=== PATIENT | female | born 1975 | race Caucasian/White ===

== ENCOUNTER 2017-06-13 10:38 | Day surgery (SDC) | payer BC ==
[~2017-06-13 10:38] MED LIST: Buffered Lidocaine 0.9% SYRIN* 5 ML/SYR SYRINGE INTRADERM ONE; Dexamethasone IV* 4 MG/ML 1 ML (4 MG) IV SLOW PU ONE; Famotidine IV* 10 MG/ML 2 ML (20 mg) IV ONE
[2017-06-13] MEDS ORDERED: Dexamethasone IV* 4 MG/ML 1 ML (4 MG) ONE ×2 (11:00→12:10)
[2017-06-13] MEDS ORDERED: Clindamycin 900 MG IVPREMIX(* 900 MG/50 ML SDV IV ONE (11:00)
[2017-06-13] MEDS ORDERED: Famotidine IV* 10 MG/ML 2 ML (20 mg) ONE (11:00)
[2017-06-13] MEDS ORDERED: Buffered Lidocaine 0.9% SYRIN* 5 ML/SYR SYRINGE ONE (11:00)
[2017-06-13] MEDS ORDERED: Lidocaine 1% INJ* 10 MG/ML 30 ML SDV ONE (12:10)
[2017-06-13] MEDS ORDERED: Bupivacaine 0.25% SDV* 30 ML ONE (12:11)
[2017-06-13] MEDS ORDERED: fentaNYL* 50 MCG/ML 2 ML VIAL (100 MCG VIAL) ONE ×3 (12:19→15:06)
[2017-06-13] MEDS ORDERED: Midazolam* 1 MG/ML 2 ML VIAL (2 MG) ONE (12:20)
[2017-06-13] MEDS ORDERED: Lidocaine 2% PF * 5 ML VIAL ONE (12:20)
[2017-06-13] MEDS ORDERED: Propofol* 10 MG/ML 20 ML BTL IV PUSH ONE ×3 (12:20→13:48)
[2017-06-13] MEDS ORDERED: Ondansetron INJ* 2 MG/ML VIAL ONE (13:34)
[2017-06-13] MEDS ORDERED: PROCHLORPERAZINE INJ 5 MG/ML 2 ML VIAL IV PRN (14:56)
[2017-06-13] MEDS ORDERED: Acetaminophen TAB* 325 MG PO PRN (14:56)
[2017-06-13] MEDS ORDERED: HYDROcodone/ACETAMIN 5-325 MG* 1 TAB PO PRN (14:56)
[2017-06-13] MEDS ORDERED: DiMENhydriNATE IV* 50 MG/ML VIAL IV PUSH PRN (14:56)
[2017-06-13] MEDS ORDERED: fentaNYL* 50 MCG/ML 2 ML VIAL (100 MCG VIAL) IV PRN (14:56)
[2017-06-13] MEDS ORDERED: Naloxone* 0.4 MG/ML 1 ML VIAL IV PRN (14:56)
[2017-06-13] MEDS: oxyCODONE TAB* 5 MG TAB PO PRN ×2 (15:00→16:32)
[2017-06-13] MEDS ORDERED: oxyCODONE TAB* 5 MG TAB ONE ×2 (15:00→16:31)
[2017-06-13] MEDS ORDERED: Ketorolac INJ* 30 MG/ML 1 ML VIAL ONE (16:19)
--- NOTE | 2017-06-13 16:37 | RAD ---
INDICATION: Follow-up arthrodesis of the left great toe metatarsal phalangeal joint to correct left hallux valgus deformity COMPARISON: None. TECHNIQUE: 2 views of the left foot were obtained. FINDINGS: There is a single medullary screw spanning the left great toe metatarsal phalangeal joint after what appears to be osteotomy of the distal left great toe metatarsal. The remaining visualized bones are intact and appropriately aligned. Depicted better on the lateral view there is a small amount of infiltration of the subcutaneous tissue along the dorsal aspect of the forefoot. IMPRESSION: POSTSURGICAL FINDINGS DESCRIBED ABOVE.
[2017-06-13 17:02] VITALS: BP 111/71
--- NOTE | 2017-06-14 15:02 | OP ---
DATE OF OPERATION: 06/13/17 - [facility] DATE OF : 75 SURGEON: Man Dye DPM ANESTHESIA: MAC local. PRE-OP DIAGNOSIS: Left hallux rigidus. POST-OP DIAGNOSIS: Left hallux rigidus. OPERATIVE PROCEDURE: Left 1st metatarsophalangeal joint arthrodesis. ESTIMATED BLOOD LOSS: Less than 10 cc. IV FLUIDS: LR 1000 cc. DRAINS: None. SPECIMENS: Bone from the 1st metatarsal area. DESCRIPTION OF PROCEDURE: The patient was taken to the operating room and was placed in a supine position. A time-out was called and OR team agreed. The left foot was then blocked with 5 cc of 1% lidocaine plain in a Harding block fashion at the base of the metatarsal. The foot was then prepped and draped in a sterile manner. The left foot was exsanguinated with an Esmarch bandage and the cuff was inflated to 250 mmHg. Attention was turned to the 1st metatarsophalangeal joint where I made a linear incision. The incision was taken from the epidermis, dermis, subcutaneous tissue, down to the deep fascia and down to the capsule. The capsule at the level of the 1st metatarsophalangeal joint was incised. The incision was taken down through the joint. The joint was evaluated. There is a severe joint destruction noted. There is significant joint eburnation around the joint. The metatarsal head was flattened as well as the base of the proximal phalanx. The cartilage was not accessed at this point. There is some significant erosion at cartilage and there is also some subchondral bleeding as well. It was decided at this time to fuse the joint as the joint cannot be salvaged. I went ahead and reshaped the head and the base of the 1st metatarsophalangeal joint. slightly putting the hallux in slight dorsiflexion and adduction. I had to remove a significant bone because of the joint destruction with the effect of shortening the toe. I then went ahead and provided a temporary fixation with a 0.45 inch K- wire to see if there was good alignment. Once it was determined that there was good alignment of the [id number] of the proximal phalanx in the 1st metatarsal, there is no gapping noted as well as the position is correct, I then proceeded to put 1 cannulated 3.0 cortical Whitley screw. It is 38 mm long. The positioning was checked via fluoroscopy. Once we determined that the position was good, the wound was then irrigated and closed in a layered anatomical fashion. I injected 9 cc of 0.25% Marcaine plain as well as 1 cc of dexamethasone phosphate. The patient tolerated the procedure well. The foot was placed in a dry sterile dressing and taken to Recovery in stable condition. I would like to note that later on during the process, 4 to 5 minutes post surgery, I was called by recovery team. Recovery nurse noted that the toe was warm, but it was a little dark. I went ahead and gave the nurse specific instructions. I will go ahead and check on the toe and back to the operating room. I instructed the nurse to take some x-rays. I also instructed to remove the Coban, which can be tight and placed the foot in a dependent position, hanging off of the stretcher. When I arrived, the recovery nurses and patient reported that the color has improved. The toe was always warm, but then the issue it was just dark. The toe has a nice pink color. It has a good capillary refill. It is not cold, it is warm. It appears that simply facing the foot in a dependent position and loosening the dressing solved the problem. The patient appears to be doing well and in minimal pain. She did start feeling some discomfort when the foot was placed in a dependent position. I went ahead and ordered some 50 mg of Toradol. X-rays were taken as well, and I checked the positioning of the screws, seemed to be okay. I will see the patient in my office on Friday. [id number]/[facility] #: [id number] CRISTI
== END 2017-06-13 17:05 | disposition home or self-care (01) ==
LOC: OR 10:38
PROVIDERS: ATTEND Podiatrist
DX: M20.12 Hallux valgus (acquired), left foot (principal)
CPT/HCPCS: 81025; 88304; 88311; A9270-GY; C1713; C1776; J1100; J1885; J2250; J2405; J2704; J3010

== ENCOUNTER 2019-01-18 10:49 | Emergency (ER) | payer BC, OTHER ==
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
[2019-01-18] MEDS ORDERED: Tetan/Diph/Pertus SYR(Tdap)* 0.5 ML SYR(BOOSTRIX) use SYR contains LATEX IM ONE (13:27)
[2019-01-18 13:41] VITALS: BP 118/68
== END 2019-01-18 13:52 | disposition home or self-care (01) ==
LOC: UCEAST 10:49
DX: S16.1XXA Strain of muscle, fascia and tendon at neck level, initial encounter (principal); S00.81XA Abrasion of other part of head, initial encounter; V43.52XA Car driver injured in collision with other type car in traffic accident, initial encounter; Y92.410 Unspecified street and highway as the place of occurrence of the external cause
CPT/HCPCS: 72050; 90471; 90715; 99212; G0463